=== PATIENT | male | born 1945 | race Asian ===

== ENCOUNTER 2017-10-02 15:55 | Emergency (ER) | payer MEDICARE, OTHER ==
[~2017-10-02] VITALS: Ht 175.3 cm; Wt 77.1 kg
--- NOTE | 2017-10-02 17:02 | Diagnostic Imaging Report ---
Indications: Headache, status post slip and fall in shower, right head laceration Technique: Spiral acquisitions obtained through the brain. Angled axial and coronal 5 x 5 mm slices were reconstructed. Total dose length product 1776.75 mGycm. CTDI vol(s) 70.38,17.53 mGy. Dose reduction achieved using automated exposure control Comparison: None. Findings: No acute intracranial hemorrhage or edema, mass effect, nor midline shift. There is mild age-related enlargement of the ventricles and extra axial CSF spaces. There is a small area of encephalomalacia in the left parietal lobe. There is periventricular deep white matter chronic ischemic change. Is evidence of prior bilateral cataract surgery. The calvarium is intact. There is evidence of right high parietal scalp soft tissue injury. Impression: Chronic and age-related changes, as described Old left parietal infarct Negative for acute intracranial bleed or mass effect The CT scanner at [facility] is accredited by the [employer] and the scans are performed using protocols designed to limit radiation exposure to as low as reasonably achievable to attain images of sufficient resolution adequate for diagnostic evaluation.
--- NOTE | 2017-10-02 17:07 | Diagnostic Imaging Report ---
Indication: Pain, status post slip and fall in the shower Technique: Spiral acquisitions obtained through the cervical spine. No IV contrast utilized. Multiplanar reconstructions were generated. Total dose length product 1776.75 mGycm. CTDIvol(s) 70.38,17.53 mGy. Dose reduction achieved using automated exposure control. Comparison: none Findings: Bony alignment is normal. Vertebral body heights are preserved. No prevertebral soft tissue swelling is demonstrated. No acute fractures. No dislocations. There is degenerative narrowing of the anterior atlantoaxial joint. At C2-3, there are large anterior osteophytes. There is bilateral facet arthrosis. The disc space is preserved. No significant disc bulge or protrusion or spinal stenosis. There is moderate right neural foraminal stenosis, due to facet hypertrophy. At C3-4,, the disc space is preserved. There are large anterior osteophytes and mild bilateral facet arthrosis. There is mild neural foraminal narrowing bilaterally. No significant disc bulge or protrusion or spinal stenosis. At C4-5, the disc spaces preserved. There are large anterior osteophytes. No significant disc bulge or protrusion, spinal stenosis, neural foraminal stenosis, or disc space narrowing. At C5-6, there is minimal broad-based central posterior disc protrusion which does not significantly compromise the spinal canal. The neural foraminal or preserved. The disc spaces preserved. There are large anterior osteophytes. There is mild bilateral facet arthrosis. At C6-7, there is moderate degenerative disc narrowing. There is moderate left and severe right neural foraminal stenosis. No significant disc bulge or protrusion or spinal stenosis. There are large anterior osteophyte At C7-T1, no significant disc bulge or protrusion, spinal stenosis, neural foraminal stenosis, or disc space narrowing. 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 The included extraspinal soft tissues are unremarkable.. Impression: No acute bony trauma Degenerative changes, as detailed above The CT scanner at [facility] is accredited by the [employer] and the scans are performed using protocols designed to limit radiation exposure to as low as reasonably achievable to attain images of sufficient resolution adequate for diagnostic evaluation.
[2017-10-02] MEDS ORDERED: Bacitracin Oint UD TOPIC ONE ×2 (17:23→17:45)
[2017-10-02] MEDS ORDERED: TYLENOL EXTRA500 MG ORAL (17:28)
[2017-10-02 17:49] VITALS: BP 113/64
--- NOTE | 2017-10-02 17:56 | Emergency Room Report ---
History of Present Illness General Chief Complaint: Multiple Trauma/Fall Source: Patient Present Illness HPI 72-year-old male presents ED complaining of headache injury. Brought in by EMS. Patient on mechanical slip and fall in the shower today at [facility]. Per EMS there is a scalp laceration to the back of his head. Denies LOC. Pain is a 5 out of 10, dull, nonradiating. Denies nausea or vomiting. Denies blurry vision. Denies chest pain or shortness of breath. No other aggravating relieving factors. Denies any other associated symptoms Allergies: Coded Allergies: No Known Allergies (Unverified , 10/02/17) Patient History Past Medical History: DM, HTN Past Surgical History: none Pertinent Family History: none Social History: Denies: smoking, alcohol use, drug use Immunizations: UTD Reviewed Nursing Documentation: PMH: Agreed; PSxH: Agreed Nursing Documentation-PMH Past Medical History: No History, Except For Hx Hypertension: Yes Hx Diabetes: Yes Review of Systems All Other Systems: negative except mentioned in HPI Physical Exam Vital Signs Date Time Temp Pulse Resp B/P (MAP) Pulse Ox O2 Delivery O2 Flow Rate FiO2 10/02/17 15:51 98.2 67 14 113/64 98 Room Air 98.2 Sp02 EP Interpretation: reviewed, normal General Appearance: no apparent distress, alert, GCS 15, non-toxic Head: normocephalic, other - 2cm posterior scalp laceration Eyes: bilateral eye normal inspection, bilateral eye PERRL ENT: hearing grossly normal, normal pharynx, no angioedema, normal voice Neck: full range of motion, supple/symm/no masses Respiratory: chest non-tender, lungs clear, normal breath sounds, speaking full sentences Cardiovascular #1: regular rate, rhythm, no edema Cardiovascular #2: 2+ carotid (R), 2+ carotid (L), 2+ radial (R), 2+ radial (L) , 2+ dorsalis pedis (R), 2+ dorsalis pedis (L) Gastrointestinal: normal bowel sounds, non tender, soft, non-distended, no guarding, no rebound Rectal: deferred Genitourinary: normal inspection, no CVA tenderness Musculoskeletal: back normal, gait/station normal, normal range of motion, non- tender Neurologic: alert, oriented x3, responsive, motor strength/tone normal, sensory intact, speech normal Psychiatric: judgement/insight normal, memory normal, mood/affect normal, no suicidal/homicidal ideation Reflexes: 3+ bicep (R), 3+ bicep (L), 3+ tricep (R), 3+ tricep (L), 3+ knee (R) , 3+ knee (L) Skin: normal color, no rash, warm/dry, well hydrated Lymphatic: no adenopathy Procedures Laceration/Wound Repair Laceration/Wound Repair : Consent: Verbal Wound Location: head - scalp Wound's Depth, Shape: linear Wound Explored: clean Betadine Prep?: Yes Anesthesia: 1% Lidocaine Wound Debrided: minimal Wound Repaired With: teena Layer Closure?: No Sterile Dressing Applied?: Yes Splint Applied?: No Sling Applied?: No Patient Tolerated: Well Complications: None Medical Decision Making Diagnostic Impression: Primary Impression: Scalp laceration Qualified Codes: S01.01XA - Laceration without foreign body of scalp, initial encounter Additional Impression: Fall Qualified Codes: W19.XXXA - Unspecified fall, initial encounter ER Course Hospital Course 72-year-old M presents to ED s/p laceration to scalp, s/p mechanical fall Clinical course Patient placed on stretcher. After initial history and physical I ordered CT head/Cspine. CT head and Cspine negative Anesthesia provided with lidocaine. laceration repaired with teena discussed findings with patient. patient safe for discharge. Diagnosis -scalp laceration, fall Stable and discharged to home with prescription for Tylenol. wound Care instructions given. Followup with PMD in 10 days for staple removal. Return to ED if any signs of infection develop CT/MRI/US Diagnostic Results CT/MRI/US Diagnostic Results #1: Imaging Test Ordered: CT Head Impression no acute process CT/MRI/US Diagnostic Results #2: Imaging Test Ordered: CT C spine Impression multilevel DJD. no acute fx Last Vital Signs Date Time Temp Pulse Resp B/P (MAP) Pulse Ox O2 Delivery O2 Flow Rate FiO2 10/02/17 17:49 98.2 76 14 113/64 98 Room Air 98.2 Status: improved Disposition: HOME, SELF-CARE Condition: Stable Scripts Acetaminophen* (TYLENOL EXTRA STRENGTH*) 500 Mg Tablet 500 MG ORAL Q8H PRN for Prn Headache/Temp > 101, #30 TAB 0 Refills Prov: Duy Gamez MD 10/02/17 Patient Instructions: Laceration Care, Adult, Ultp-sb-Rota Additional Instructions: have teena removed in 10 days. return to ED if any signs of infection develop Duy Gamez MD Oct 02, 2017 17:56
== END 2017-10-02 18:00 | disposition home or self-care (01) ==
LOC: EDBD 15:55 → EMR 17:46
DX: S01.01XA Laceration without foreign body of scalp, initial encounter (principal); W18.2XXA Fall in (into) shower or empty bathtub, initial encounter; Y93.89 Activity, other specified; Y92.838 Other recreation area as the place of occurrence of the external cause
CPT/HCPCS: 70450; 72125; 99283

== ENCOUNTER 2017-10-08 13:38 | Emergency (ER) | payer MEDICARE, OTHER ==
[~2017-10-08] VITALS: Ht 170.2 cm; Wt 81.6 kg
[~2017-10-08 13:38] MED LIST: TYLENOL EXTRA500 MG ORAL
--- NOTE | 2017-10-08 14:36 | Emergency Room Report ---
History of Present Illness General Chief Complaint: Wound Recheck/Suture Removal Source: Patient Present Illness HPI 72-year-old male presents to the emergency department for staple removal from previously . Posterior scalp laceration. Patient denies pain denies erythema, bleeding, tenderness fevers or chills. She is up-to-date with vaccinations. Allergies: Coded Allergies: No Known Allergies (Unverified , 10/02/17) Patient History Past Medical History: see triage record Past Surgical History: none Pertinent Family History: none Immunizations: UTD Reviewed Nursing Documentation: PMH: Agreed; PSxH: Agreed Nursing Documentation-PMH Past Medical History: No History, Except For Hx Hypertension: Yes Hx Diabetes: Yes Review of Systems All Other Systems: negative except mentioned in HPI Physical Exam Vital Signs Date Time Temp Pulse Resp B/P (MAP) Pulse Ox O2 Delivery O2 Flow Rate FiO2 10/08/17 14:09 98.2 67 14 130/70 94 Room Air 98.2 Sp02 EP Interpretation: reviewed, normal General Appearance: no apparent distress, alert, GCS 15, non-toxic Head: normocephalic, atraumatic ENT: hearing grossly normal, normal voice Neck: full range of motion Respiratory: lungs clear, normal breath sounds, speaking full sentences Cardiovascular #1: regular rate, rhythm Musculoskeletal: back normal, gait/station normal, normal range of motion, non- tender Neurologic: alert, oriented x3, responsive, motor strength/tone normal, sensory intact, normal gait, speech normal, grossly normal Psychiatric: judgement/insight normal Skin: normal color, no rash, warm/dry, well hydrated, wd healing/no infection noted - healed laceration of the posterior scalp with [address] Medical Decision Making PA Attestation Dr. Aguirre is my supervising Physician whom patient management has been discussed with. Diagnostic Impression: Primary Impression: Encounter for removal of sutures ER Course Pt. presents to the ED c/o [place] in the scalp that need to be removed s/p wound closure. Ddx considered but are not limited to laceration, tendon injury, cellulitis, dehiscence. Vital signs: are WNL, pt. is afebrile H&PE are most consistent with: healed laceration of the posterior scalp ORDERS: none required at this time, the diagnosis is clinical ED INTERVENTIONS: - 3 teena removed. DISCHARGE: At this time pt. is stable for d/c to home. Will provide printed patient care instructions, and any necessary prescriptions. Care plan and follow up instructions have been discussed with the patient prior to discharge. Last Vital Signs Date Time Temp Pulse Resp B/P (MAP) Pulse Ox O2 Delivery O2 Flow Rate FiO2 10/08/17 14:09 98.2 67 14 130/70 94 Room Air 98.2 Disposition: HOME, SELF-CARE Condition: Stable Scripts Bacitracin/Polymyxin B Sulfate (BACITRACIN-POLYMYXIN OINTMENT) 28.35 Gm Oint...g. 1 APPLIC TP BID, #28.3 GM Prov: Amelia Mckenzie 10/08/17 Patient Instructions: Suture Removal, Care After Additional Instructions: Take medications as directed. Follow up with a Primary Care Provider in 3-5 days, even if your symptoms have resolved. --Please review list of primary care clinics, if you do not already have a primary care provider Return sooner to ED if new symptoms occur, or current symptoms become worse. - Please note that this Emergency Department Report was dictated using [employer]community associate technology software, occasionally this can lead to erroneous entry secondary to interpretation by the dictation equipment. Amelia Mckenzie Oct 08, 2017 14:36
[2017-10-08] MEDS ORDERED: BACITRACIN-P28.35 GM TP (14:37)
[2017-10-08 15:01] VITALS: BP 122/71
== END 2017-10-08 15:01 | disposition home or self-care (01) ==
LOC: EMR 14:27
DX: Z48.02 Encounter for removal of sutures (principal); Z48.817 Encounter for surgical aftercare following surgery on the skin and subcutaneous tissue; E11.9 Type 2 diabetes mellitus without complications; I10 Essential (primary) hypertension
CPT/HCPCS: 99282